=== PATIENT | female | born 1940 | race Caucasian/White ===

== ENCOUNTER → 2016-09-15 13:59 | Outpatient (CLI) | payer MEDICARE, BC ==
[2015-09-09 10:26] VITALS: BMI 20.9
[~2016-09-15 13:59] MED LIST: ADVAIR 100/501 DISK INH; ALTACE10 MG PO; ATROVENT 0.02%2.5 ML UPD; CARDIZEM CD300 MG PO; DALIRESP500 MCG PO; DOXYCYCLINE HY100 M2 PO; FOSAMAX 70 MG T70 MG PO; NYSTATIN ORAL SU5 ML PO; SINGULAIR10 MG PO; SYMBICORT 80-10.2 GM INH; TAMOXIFEN CITRA20 MG PO; TAZTIA XT360 MG PO; VENTOLIN HFA18 GM INH; XALATAN 0.0052.5 ML EACH EYE
== END | disposition home or self-care (01) ==
LOC: D.MRI 13:59
DX: M54.5 Low back pain (principal)

== ENCOUNTER 2017-02-27 23:10 | Emergency (ER) | payer MEDICARE, BC ==
[2015-09-09 10:26] VITALS: BMI 20.9
[2017-02-27 23:47] LABS: HEMATOCRIT 39.5 % (36.0-48.0); HEMOGLOBIN 13.3 g/dL (12-16); LYMPHOCYTES 18.6 % (15-50); MCH 29.6 pg (26.0-34.0); MCHC 33.7 g/dL (31.0-37.0); MEAN PLATELET VOLUME 8.2 fL (7.4-10.4); RBC 4.49 10x6/uL (4.00-5.40); RDW 12.9 % (11.5-14.5); WBC 9.4 10x3/uL (4.8-10.8)
[2017-02-27 23:50] LABS: APPEARANCE CLEAR (CLEAR); BILIRUBIN NEGATIVE (NEGATIVE); COLOR STRAW (YELLOW); GLUCOSE NEGATIVE (NEGATIVE); KETONE NEGATIVE (NEGATIVE); NITRITE NEGATIVE (NEGATIVE); PLATELET COUNT 323 10x3/uL (130-400); PROTEIN NEGATIVE (NEGATIVE); UROBILINOGEN NORMAL (NORMAL)
[2017-02-28 00:02] LABS: ALKALINE PHOSPHATASE 63 U/L (46-116); ALT (SGPT) 39 U/L (10-68); BILIRUBIN - TOTAL 0.23 mg/dL (0.2-1.3); CALC OSMOLALITY 285 mosm/kg (275-300); CALCIUM 9.6 mg/dL (8.5-10.1); CARBON DIOXIDE 33.2 mmol/L (21.0-32.0); CHLORIDE - SERUM 101 mmol/L (98-107); GLUCOSE 116 mg/dL (74-106); PROTEIN - SERUM 7.4 g/dL (6.4-8.2); SODIUM 141 mmol/L (136-145); UREA NITROGEN 25 mg/dL (7-18); eGFR NON AFRICAN AMERICAN 57 mL/min (90-120)
[2017-02-28 00:09] LABS: TROPONIN-I < 0.017 ng/mL (0.000-0.060)
== END 2017-02-28 00:34 | disposition home or self-care (01) ==
LOC: D.ER 23:10
PROVIDERS: Emergency Medicine
DX: R00.2 Palpitations (principal); T46.5X5A Adverse effect of other antihypertensive drugs, initial encounter; Y92.029 Unspecified place in mobile home as the place of occurrence of the external cause; J44.9 Chronic obstructive pulmonary disease, unspecified; I10 Essential (primary) hypertension; R00.0 Tachycardia, unspecified

== ENCOUNTER → 2017-03-20 14:27 | Outpatient (CLI) | payer MEDICARE, BC ==
[2015-09-09 10:26] VITALS: BMI 20.9
== END | disposition home or self-care (01) ==
LOC: D.MAMMO 03-14 12:00
DX: Z85.3 Personal history of malignant neoplasm of breast (principal); Z12.31 Encounter for screening mammogram for malignant neoplasm of breast

== ENCOUNTER → 2018-03-27 20:44 | Outpatient (CLI) | payer MEDICARE, BC ==
[2015-09-09 10:26] VITALS: BMI 20.9
== END | disposition home or self-care (01) ==
LOC: D.MAMMO 03-21 09:00 → D.US 03-21 10:30 → D.MAMMO 10:00
DX: Z85.3 Personal history of malignant neoplasm of breast (principal)

== ENCOUNTER → 2019-04-16 14:30 | Outpatient (CLI) | payer MEDICARE, BC ==
[2015-09-09 10:26] VITALS: BMI 20.9
== END | disposition home or self-care (01) ==
LOC: D.MAMMO 08:15
PROVIDERS: ATTEND Family Medicine
DX: Z12.31 Encounter for screening mammogram for malignant neoplasm of breast (principal)